=== PATIENT | male | born 2005 | race Caucasian/White ===

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

== ENCOUNTER 2024-08-20 14:23 | Emergency (ER) | payer OTHER, SELFPAY ==
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
--- OUTSIDE RECORDS SUMMARY | 2024-08-20 14:26 | XMS_ITS | Clinical Summary ---
Author Organization [facility] [employer] Address [address] [place] [address] Care Team Providers Care Administration Professional Name Role Phone Lorne Sanches MD Primary Care Provider [phone] Source Comments [facility] [employer],non-owned Affiliates and Associated Physician Practices is amultiple site organization consisting of ambulatory clinics and hospital sitesin [place], [place], [place] and [place]. This disclosure is being madepursuant to the Care Everywhere program and may not contain all information available regarding this patient. Last updated 18.[facility] [employer] Allergies No known active allergies Medications * Be aware that medications may not be up to date on this document. Alwaysverify current medications with the patient. ibuprofen (MOTRIN) 100 MG chew tablet Take 250 mg by mouth every 6 hours as needed. Active Acetaminophen (TYLENOL CHILDRENS PO) Take by mouth. Active Active Problems Problem Noted Date Diagnosed Date Closed nondisplaced fracture of distal phalanx of left index finger 12/08/2021 Social History Tobacco Use Types Packs/Day Years Used Date Smoking Tobacco: Never Smokeless Tobacco: Never Alcohol Use Standard Drinks/Week Comments Never 0 (1 standard drink = 0.6 oz pur e alcohol) Sex and Gender Information Value Date Recorded Sex Assigned at Not on file Legal Sex Male 2:01 PM CDT Gender Identity Not on file Sexual Orientation Not on file Last Filed Vital Signs Vital Sign Reading Time Taken Comments Blood Pressure 92/58 09/12/2014 9:31 AM CDT Pulse - - Temperature - - Respiratory Rate - - Oxygen Saturation - - Inhaled Oxygen Concentration - - Weight 65.1 kg (143 lb 8.3 oz) 12/08/2021 2:49 P M CDT Height 172 cm (5' 7.72 ) 12/08/2021 2:49 PM CDT Body Mass Index 22 12/08/2021 2:49 PM CDT Body Mass Index Percentile 59.62% 12/08/2021 2:4 9 PM CDT Growth Chart: [facility] (Boys, 2-2 0 Years) Plan of Treatment Health Maintenance Due Date Last Done Comments HIV SCREENING 11/05/2019 HPV VACCINE (1 - Male 3-dose series) 11/05/2019 MENINGOCOCCAL (Group B) VACCINE SHARED DECISION-MAKING (1 of 2 - Standard) 2020 HEPATITIS C SCREENING 10/31/2022 DTAP/TDAP/TD VACCINES (1 - Tdap) 11/05/2023 HEPATITIS B VACCINE (1 of 3 - 19+ 3-dose series) 11/05/2023 COVID-19 VACCINE (3 - season) 2023 04/16/2021, 12/04/2020 DEPRESSION SCREENING 04/26/2024 INFLUENZA VACCINE (Season Ended) 2024 03/17/2019, 04/08/2018, 03/08/2014, Additional history exists ZOSTER VACCINE (1 of 2) 2054 HIB VACCINE Aged Out No longer eligi ble based on patient's age to complete this topic MENINGOCOCCAL GROUPS A/C/Y/W VACCINE Aged Out No longer eligible based on patient's age to complete this topic PNEUMOCOCCAL VACCINE Aged Out No long er eligible based on patient's age to complete this topic Insurance [place] [facility] [place] [address] Care Teams Administration Professional Relationship Specialty Start Date End Date Lorne Sanches MD [address] [place] [address] PCP - General Pediatrics 12/08/21
--- OUTSIDE RECORDS SUMMARY | 2024-08-20 14:26 | XMS_ITS | Clinical Summary ---
Author Organization [facility] Address [address] [place] [address] Care Team Providers Care Building Construction Foreman Name Role Phone Chente Norwood MD Primary Care Provider [phone] Allergies No known active allergies Medications dicyclomine (BENTYL) 20 mg tablet Take 1 pill up to 4 times daily to help with problematic cramping and diarrhea. If taken 10-15 minutes prior to eating, can prevent these symptoms from occurring after eating. 120 capsule 3 4 Active simethicone (MYLICON) 125 mg chewable tablet Take 1 tablet (125 mg total) by mouth 4 (four) times a day as needed (cramping/bloati ng/gas/nausea) 120 tablet 3 4 Active Active Problems Problem Noted Date Diagnosed Date Chronic diarrhea 12/28/2023 Abdominal pain 12/28/2023 Closed nondisplaced fracture of distal phalanx of left index finger 12/08/2021 08/10/2022 Laceration of left little fi nger without foreign body without damage to nail 05/30/2018 Immunizations Immunization Administration Dates Next Due DTaP 03/30/2006, 6,04/01/2005,01/29 DTaP / IPV 12/26/2008 Hep A, Pediatric 12/14/2006,06/01/2006 Hep B, Adolescent or Pediatric 06/03/2005,2004,2004 HiB 03/30/2006, 6,04/01/2005,01/29 IPV 12/26/2008, 6,04/01/2005,01/29 Influenza, Live, Intranasal, Quadrivalent 03/08/2014 Influenza, Quadrivalent, Spl it, Preservative Free, Intramuscular 03/17/2019,04/08/2018 Influenza, Unspecified 02/11/2011,03/21/2007 MMR 12/26/2008,12/21/2005 Meningococcal B, OMV (Bexsero) 11/06/2021,2020 Meningococcal Conjugate (Menveo) 12/09/2015 Meningococcal MCV4P (Menactra) 11/12/2020 Pneumococcal Conjugate 7-Valent 03/30/2006,06/03,04/01/2005 Tdap 01/15/2017,11/09/2014 Varicella 12/26/2008,12/21/2005 Medical History Medical History Date Comments ADHD (attention deficit hyperactivity disorder) OCD (obsessive compulsive disorder) Social History Tobacco Use Types Packs/Day Years Used Date Smoking Tobacco: Never Smokeless Tobacco: Never Tobacco Cessation:Counseling Given: Not Answered AUDIT-C Answer Date Recorded Q1: How often do you have a drink containing alc ohol? Never 12/28/2023 Average Number of Drinks Not on file 024 Q3: How often do you have si x or more drinks on one occasion? Never 12/28/2023 Personal Safety Answer Date Recorded Have you ever been in or are you currently in a harmful physical or emotional relationship or is someone making you feel afraid or unsafe? 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 (Boys, 2-20 Years) Last Filed Vital Signs Vital Sign Reading Time Taken Comments Blood Pressure 124/79 12/28/2023 2:01 PM CDT Pulse 52 12/28/2023 2:01 PM CDT Temperature 37.8 C (100 F) 04/23/2023 11:51 PM ADULT BASIC EDUCATION MANAGER Respiratory Rate 16 04/23/2023 11:51 PM ADULT BASIC EDUCATION MANAGER Oxygen Saturation 98% 12/28/2023 2:01 PM CDT Inhaled Oxygen Concentration - - Weight 72.8 kg (160 lb 6.4 oz) 12/28/2023 2:01 P M CDT Height 170.2 cm (5' 7 ) 12/28/2023 2:01 PM CDT Body Mass Index 25.12 12/28/2023 2:01 PM CDT Plan of Treatment Health Maintenance Due Date Last Done Comments Depression Screening 2004 Hepatitis C Screening 2004 HPV Vaccines (1 - Male 3-dos e series) 11/05/2019 Regular Well Visit/Exam 18-64 2022 Covid-19 Vaccine (3 - 2023-2 5 season) 2023 04/16/2021, 12/04/2020 Influenza Vaccine (Season Ended) 2024 03/17/2019, 04/08/2018, 03/08/2014, Additional history exists DTaP/Tdap/Td Vaccine (8 - Td or Tdap) 01/15/2027 01/15/2017, 11/09/2014, 12/26/2008, Additional history exists Hepatitis B Screening Completed 06/03/2005 , 04/01/2005, 2004 Pneumococcal vaccine <65 Completed 006, 06/03/2005, 04/01/2005 Varicella Vaccines Completed 12/26/2008, 12/21/2005 Meningococcal Vaccine Completed 11/12/2020, 016 Meningococcal B Vaccine Completed 11/06/2021, 11/12 Insurance [facility] Care Teams Building Construction Foreman Relationship Specialty Start Date End Date Chente Norwood MD PCP - General Pediatrics 08/07/22
--- OUTSIDE RECORDS SUMMARY | 2024-08-20 14:26 | XMS_ITS | Patient Health Record ---
Author Organization [facility] Address [address] [place] [address] Support Name Relationship Address Phone Selina coe Guarantor Unknown [phone] Reason For Referral No Information Medications Medication SIG (Take, Route, Fr equency, Duration) Notes Start Date End Date Status guanFACINE HCl Unkno wn Fluoxetine Unknown Plan Of Treatment No Information Insurance Providers Payer Name Payer Address Payer Phone Subscriber Number Group Number Insured Name Patient Relationship to Insured Coverage Start Date Coverage End Date [employer] [id number] [place] [address] [id number] PLALAVI COE Self - patient is the insured 8 Medical (General) History Medical History History ICD Code ADHD obsessive-compulsive personality disorde r
--- OUTSIDE RECORDS SUMMARY | 2024-08-20 14:26 | XMS_ITS | Referral Summary ---
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 Gender Identity Not on file Sexual Orientation Not on file Last Filed Vital Signs Vital Sign Reading Time Taken Comments Blood Pressure 124/79 12/28/2023 2:01 PM CDT Pulse 52 12/28/2023 2:01 PM CDT Temperature 37.8 C (100 F) 04/23/2023 11:51 PM MORPHOLOGY TEACHER Respiratory Rate 16 04/23/2023 11:51 PM MORPHOLOGY TEACHER Oxygen Saturation 98% 12/28/2023 2:01 PM CDT Inhaled Oxygen Concentration - - Weight 72.8 kg (160 lb 6.4 oz) 12/28/2023 2:01 P M CDT Height 170.2 cm (5' 7 ) 12/28/2023 2:01 PM CDT Body Mass Index 25.12 12/28/2023 2:01 PM CDT Plan of Treatment Not on file Insurance [facility] Care Teams Cso Relationship Specialty Start Date End Date Chente Norwood MD PCP - General Pediatrics 08/07/22
[2024-08-20 14:33] VITALS: BP 146/87; PULSE 73; RESP 16; TEMP 36.7; O2SAT 99
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
== END 2024-08-20 16:10 | disposition home or self-care (01) ==
PROVIDERS: Emergency Provider Nurse Practitioner
DX: S60.221A Contusion of right hand, initial encounter (principal); W22.8XXA Striking against or struck by other objects, initial encounter; S60.222A Contusion of left hand, initial encounter; W22.09XA Striking against other stationary object, initial encounter
CPT/HCPCS: 73110; 73130; 99214; G0463

== ENCOUNTER 2024-09-15 14:29 | Emergency (ER) | payer OTHER, SELFPAY ==
--- OUTSIDE RECORDS SUMMARY | 2024-09-15 14:32 | XMS_ITS | Referral Summary ---
Author Organization [facility] Address [address] [place] [address] Care Team Providers Care Automotive Porter Name Role Phone Chente Norwood MD Primary Care Provider [phone] Allergies No known active allergies Medications dicyclomine [...] on file Legal Sex Male 9:31 PM HEEL BRUSHER Gender Identity Not on file Sexual Orientation Not on file Last Filed Vital Signs Vital Sign Reading Time Taken Comments Blood Pressure 124/79 12/28/2023 2:01 PM CDT Pulse 52 12/28/2023 2:01 PM CDT Temperature 37.8 C (100 F) 04/23/2023 11:51 PM HEEL BRUSHER Respiratory Rate 16 04/23/2023 11:51 PM HEEL BRUSHER Oxygen Saturation 98% 12/28/2023 2:01 PM CDT Inhaled Oxygen Concentration - - Weight 72.8 kg (160 lb 6.4 oz) 12/28/2023 2:01 P M CDT Height 170.2 cm (5' 7 ) 12/28/2023 2:01 PM CDT Body Mass Index 25.12 12/28/2023 2:01 PM CDT Plan of Treatment Not on file Insurance [facility] Care Teams Automotive Porter Relationship Specialty Start Date End Date Chente Norwood MD PCP - General Pediatrics 08/07/22
--- OUTSIDE RECORDS SUMMARY | 2024-09-15 14:32 | XMS_ITS | Clinical Summary ---
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 PLANT HELPER Gender Identity Not on file Sexual Orientation Not on file Obstetrics History Growth Chart Information Age Height Weight Nglajf-zet-fuia th Percentile BMI Percentile Head Circum Head [...] kg (121 lb 11.1 oz) 2017 * [facility] (Boys, 2-20 Years) Last Filed Vital Signs Vital Sign Reading Time Taken Comments Blood Pressure 124/79 12/28/2023 2:01 PM CDT Pulse 52 12/28/2023 2:01 PM CDT Temperature 37.8 C (100 F) 04/23/2023 11:51 PM ACID PLANT HELPER Respiratory Rate 16 04/23/2023 11:51 PM ACID PLANT HELPER Oxygen Saturation 98% 12/28/2023 2:01 PM CDT [...] Meningococcal B Vaccine Completed 11/06/2021, 11/12 Insurance [facility] Care Teams Airport Location Manager Relationship Specialty Start Date End Date Chente Norwood MD PCP - General Pediatrics 08/07/22
--- OUTSIDE RECORDS SUMMARY | 2024-09-15 14:32 | XMS_ITS | Clinical Summary ---
Author Organization [facility] Address [address] [place] [place] [address] Care Team Providers Care Laminating Press Operator Name Role Phone Lorne Sanches MD Primary Care Provider [phone] Source Comments [facility],non-owned Affiliates and Associated Physician Practices is amultiple site organization consisting of ambulatory clinics and hospital sitesin [place], [place], [place] and [place]. This disclosure is being madepursuant to the Care Everywhere program and may not contain all information available regarding this patient. Last updated 18.[facility] Allergies No known active allergies Medications * [...] 12/08/2021 2:4 9 PM CDT Growth Chart: [facility] (Boys, 2-2 0 Years) Plan [...] complete this topic Insurance [place] [facility] [place] [address] Care Teams Laminating Press Operator Relationship Specialty Start Date End Date Lorne Sanches MD [address] [place] [address] PCP - General Pediatrics 12/08/21
--- OUTSIDE RECORDS SUMMARY | 2024-09-15 14:32 | XMS_ITS | Patient Health Record ---
Author Organization [facility] Address [address] [place] [address] Support Name Relationship Address Phone Selina coe Guarantor Unknown [phone] Reason For Referral No Information Medications Medication SIG (Take, Route, Fr equency, Duration) Notes Start Date End Date Status guanFACINE HCl Unkno wn Fluoxetine Unknown Plan Of Treatment No Information Insurance Providers Payer Name Payer Address Payer Phone Subscriber Number Group Number Insured Name Patient Relationship to Insured Coverage Start Date Coverage End Date [employer] [id number] [place] [address] [phone] [id number] PALLAVI OCE Self - patient is the insured 8 Medical (General) History Medical History History ICD Code ADHD obsessive-compulsive personality disorde r
[2024-09-15 14:34] VITALS: BP 123/73; PULSE 68; RESP 16; TEMP 37.5; O2SAT 100
--- NOTE | 2024-09-15 14:40 | ED.URI ---
HPI - URI/Sore Throat General Chief Complaint: Upper Respiratory Infection Stated Complaint: Fever,Sore Throat Time Seen by Provider: 09/15/24 14:42 History of Present Illness HPI Narrative: 18 y/o male presented for c/o sore throat x3 days. Endorses fatigue and fever up to 101 yesterday. Denies sob, wheezing, n/v/d. Related Data Allergies Allergy/AdvReac Type Severity Reaction Status Date / Time No Known Allergies Allergy Unknown Verified 09/15/24 14:37 Review of Systems Review of Systems: CONSTITUTIONAL: Denies body aches reports fever, chills EYES: Denies visual changes, redness, or discharge. ENT: reports sore throat Denies rhinorrhea, congestion, or otalgia. CARDIOVASCULAR: Denies chest pain, palpitations, or edema. RESPIRATORY: Denies dyspnea. GASTROINTESTINAL: Denies abdominal pain, nausea, vomiting, or diarrhea. SKIN: Denies rash NEUROLOGIC: Denies headache PMFSH Past Medical History Medical History No pertinent past medical history Surgical History Surgical History No pertinent past surgical history Family History Family History Mother Family history non-contributory Social History Social History Smoking status: Never smoker Alcohol intake: never Substance use: never Living arrangements: with family Occupation/Education: student Gender identity (if verbalized by the patient): Male Exam Narrative: GENERAL: well-appearing, no acute distress. EYES: conjunctivae clear ENT: Mucous membranes moist. TM pearly fields with normal light reflex bilaterally; no tragal tenderness. Oropharynx severely erythematous without lesions. Tonsils enlarged 2+with exudate. No drooling, no hoarseness, no trismus, uvula midline. No tripod positioning, hot potato voice, or soft palate swelling. NECK: Supple. No lymphadenopathy CHEST: Clear to auscultation, breath sounds equal. HEART: Regular rate and rhythm. No murmur heard. SKIN: Warm, dry, no rash. NEURO: Alert and oriented x3. Course Course Emergency Course: Patient is aware of diagnosis, understands and agrees to treatment plan. Anticipatory guidance given. Patient agrees to follow-up as directed and is aware of reasons to seek care at the emergency department. Portions of this record may have been created with voice recognition software Level of Care: Express Care Visit Vital Signs Vital signs: Vital Signs Temperature 99.5 F 09/15/24 14:34 Pulse Rate 68 09/15/24 14:34 Respiratory Rate 16 09/15/24 14:34 Blood Pressure 123/73 09/15/24 14:34 Pulse Oximetry 100 09/15/24 14:34 Oxygen Delivery Room Air 09/15/24 14:34 Temperature 99.5 F 09/15/24 14:34 Pulse Rate 68 09/15/24 14:34 Respiratory Rate 16 09/15/24 14:34 Blood Pressure 123/73 09/15/24 14:34 Pulse Oximetry 100 09/15/24 14:34 Oxygen Delivery Room Air 09/15/24 14:34 MDM - URI/Sore Throat MDM Narrative Medical decision making narrative: Neg strep result reviewed with pt.Will treat based on PE and CC. Advise supportive treatments. Patient is appropriate for outpatient treatment and follow-up. Differential Diagnosis Differential diagnosis: Likely upper respiratory infection, viral infection and pharyngitis Lab Data Labs: Lab Results 09/15/24 Range/Units 14:51 POC Grp A Strep Screen Negative (Negative) Discharge Plan Discharge Clinical Impression: Pharyngitis Patient Disposition: Home Condition: Stable Instructions: Antibiotic Form, Strep Throat (ED) Additional Instructions: - Take the antibiotic as directed. Fever and sore throat typically resolve within one to three days. Most patients can return to work, school, after 12 to 24 hours of antibiotic therapy, provided you are fever free and otherwise well. -Eat and drink things that are easy to swallow, like soft foods, cool liquids, tea with honey, or popsicles . -Salt water gargles and/or may use topical anesthetic ( Chloraseptic spray) or lozenges to relieve dryness or throat pain -Alternate Tylenol and ibuprofen as needed for pain and fever as directed. -Frequent hand washing or hand candy dipper hand is one of the best ways to prevent spread of infection. Throw away the toothbrush after 24hours of antibiotic. -Follow up with primary care provider in 2-3 days if condition is not improving -Go to the ER if you have trouble breathing, cannot drink enough fluids, have muffled voice or drooling, difficulty opening your mouth, or severe swelling. Patient Language: Senegalese Prescriptions: New amoxicillin 500 mg tablet 1,000 mg PO DAILY 10 Days Qty: 20 0RF Follow-up/Referrals: UNKNOWN,DOCTOR [Primary Care Provider] -
[2024-09-15 14:53] LABS: EDSTREPNEGPOS1 Negative (Negative)
== END 2024-09-15 14:59 | disposition home or self-care (01) ==
PROVIDERS: Emergency Provider Nurse Practitioner Family
DX: J02.9 Acute pharyngitis, unspecified (principal)
CPT/HCPCS: 87081; 87880; 99213; G0463